=== PATIENT | male | born 1985 | race Two or more races ===

== ENCOUNTER 2023-07-19 15:48 | Emergency (ER) | payer BC, OTHER ==
[~2023-07-19] VITALS: Ht 170.2 cm; Wt 87.1 kg
[2023-07-19 16:06] VITALS: BP 135/85; PULSE 90; RESP 14; TEMP 99.3; O2SAT 97
[2023-07-19] MEDS ORDERED: IBUP-2213 PO (17:27)
[2023-07-19] MEDS: FLUORESCEIN OPTH STRIP 1 MG OP ONE (17:35)
[2023-07-19] MEDS: TETRACAINE HCL/PF 0.5% OPTH 4 ML BTL OP ONE (17:35)
[2023-07-19 17:43] VITALS: BP 135/85; PULSE 90; RESP 14; TEMP 99.3; O2SAT 97
[2023-07-19] MEDS: KETOROLAC 30 MG/ML VIAL IM ONE (17:45)
== END 2023-07-19 17:43 | disposition home or self-care (01) ==
LOC: MED 15:48
DX: S05.02XA Injury of conjunctiva and corneal abrasion without foreign body, left eye, initial encounter (principal); Z79.899 Other long term (current) drug therapy; W22.8XXA Striking against or struck by other objects, initial encounter; Y93.89 Activity, other specified; Y92.89 Other specified places as the place of occurrence of the external cause; Y99.8 Other external cause status
CPT/HCPCS: 90471; 90715; 96372; 99284; J1885